=== PATIENT | male | born 1940 | race Caucasian/White ===

== ENCOUNTER 2016-06-29 13:21 | Inpatient (IN) | payer MEDICARE, OTHER ==
[2016-06-29 15:20] LABS: ABG CO2 ARTERIAL 20 mmol/L (21-27); ARTERIAL BLD GAS O2 SATURATION 93 % (95-98); ARTERIAL BLOOD GAS PCO2 30 mmHg (32-45); ARTERIAL PO2 65 mmHg (70-100); BICARBONATE 19 mmol/L (21-28); BLOOD GAS BASE EXCESS -4 mM/L (-/+3); PH 7.42 Units (7.35-7.45)
[2016-06-29 15:44] LABS: INR 1.2 INR (0.9-1.1); PROTHROMBIN TIME 13.5 SECONDS (9.0-13.6)
[2016-06-29 17:04] LABS: PROCALCITONIN 5.58 ng/ml (0.05-0.09)
[2016-06-29 18:59] LABS: ALB/GLOB RATIO 0.7 (0.8-2.0); ALBUMIN 2.9 g/dl (3.5-5.0); ALKALINE PHOSPHATASE 50 U/L (33-138); ALT/SGPT 28 U/L (12-78); ANION GAP 14 mmol/L (0-20); AST/SGOT 46 U/L (10-40); BILIRUBIN,TOTAL 1.4 mg/dl (0.0-1.5); BLOOD UREA NITROGEN 16 mg/dl (6-24); CALCIUM 8.5 mg/dl (8.5-10.5); CARBON DIOXIDE-VENOUS 21 mmol/L (22-32); CHLORIDE 109 mmol/l (96-110); CREATININE 1.44 mg/dl (0.60-1.30); GLUCOSE 231 mg/dL (70-110); MAGNESIUM 1.7 mg/dl (1.3-2.6); PHOSPHOROUS 2.4 mg/dl (2.5-4.9); POTASSIUM 4.8 mmol/L (3.7-5.1); SODIUM 139 mmol/L (135-145); eGFR VALUE FOR BLACK 55 mL/Min
[2016-06-29] MEDS ORDERED: ASPIRIN81 M1 PO (19:00)
[2016-06-29] MEDS ORDERED: LASIX20 M1 PO (19:00)
[2016-06-29] MEDS ORDERED: MECLIZINE HCL25 M3 PO (19:01)
[2016-06-29] MEDS ORDERED: PLAVIX75 M1 PO (19:02)
[2016-06-29 19:03] LABS: TSH-THYROID STIMULATING HORM. 0.54 uIU/ml (0.40-3.80)
[2016-06-29] MEDS ORDERED: GLUCOPHAGE1000 M1 PO (19:03)
[2016-06-29] MEDS ORDERED: PRINIVIL5 M1 PO (19:03)
[2016-06-29] MEDS ORDERED: PRILOSEC OTC20 M1 PO (19:03)
[2016-06-29] MEDS ORDERED: NEURONTIN600 M1 PO (19:04)
[2016-06-29] MEDS ORDERED: FLOMAX0.4 M1 PO (19:07)
[2016-06-29] MEDS ORDERED: LIPITOR40 M1 PO (19:08)
[2016-06-29] MEDS ORDERED: NOVOLIN 70100 UNITS/ SC (19:15)
[2016-06-29 23:32] LABS: URINE APPEARANCE CLEAR; URINE BILIRUBIN NEGATIVE (NEG); URINE BLOOD MODERATE (NEG); URINE COLOR YELLOW; URINE GLUCOSE (UA) LARGE (NEG); URINE KETONE NEGATIVE (NEG); URINE LEUKOCYTE ESTERASE NEGATIVE (NEG); URINE NITRITE NEGATIVE (NEG); URINE PROTEIN MODERATE (NEG); URINE SPECIFIC GRAVITY 1.015 (1.003-1.030)
[2016-06-29 23:48] LABS: URINE AMORPHOUS 1+; URINE EPITHELIAL CELLS 0 /[HPF] (0-10); URINE RBC 0 /[HPF] (0-5); URINE WBC 0-1 /[HPF] (0-5)
[2016-06-30 05:45] LABS: ABG CO2 ARTERIAL 17 mmol/L (21-27); ARTERIAL BLD GAS O2 SATURATION 97 % (95-98); ARTERIAL BLOOD GAS PCO2 33 mmHg (32-45); ARTERIAL PO2 108 mmHg (70-100); BICARBONATE 16 mmol/L (21-28); BLOOD GAS BASE EXCESS -9 mM/L (-/+3); PH 7.31 Units (7.35-7.45)
[2016-06-30 05:52] LABS: BASO % 0.1 % (0-2); HCT-HEMATOCRIT 40.1 % (36.0-53.5); HGB-HEMOGLOBIN 13.5 gm/dl (13.5-17.0); IMMATURE GRANULOCYTES ABSOLUTE 0.09 tho/cmm (0-0.03); IMMATURE GRANULOCYTES PERCENT 0.5 % (0-0.3); LYMPH % 12.8 % (20-45); LYMPH ABSOLUTE COUNT 2.2 tho/cmm (0.8-4.5); MCH (MEAN CORPUSCULAR HGB) 34.2 pg (28.0-32.0); MCHC MEAN CORPUSCULAR HGB CONC 33.7 % (32.0-36.0); MCV (MEAN CELL VOLUME) 101.5 fl (82.0-96.0); MEAN PLATELET VOLUME 10.6 cmc (9.4-12.4); MONO % 3.3 % (0-12); MONOCYTE ABSOLUTE COUNT 0.6 tho/cmm (0.0-1.2); NEUTROPHIL ABSOLUTE COUNT 14.2 tho/cmm (1.6-8.0); NEUTROPHIL-AUTOMATED 14.2 tho/cmm (1.6-8.0); NEUTROPHILS % 83.3 % (40-80); PLATELET COUNT 171 tho/cmm (150-450); RED BLOOD COUNT 3.95 mil/cmm (4.40-5.70); RED CELL DISTRIBUTION WIDTH 13.2 % (12.4-16.4); WHITE BLOOD COUNT 17.1 tho/cmm (4.0-10.0)
--- NOTE | 2016-06-30 06:03 | NUR ---
0515: SCREAMED FOR HELP. WENT IN, PATIENT NOT REALLY BREATHING WITH BIPAP ON. RIPPED OFF, GRABBED A BAG, YELLED FOR HELP, AND CALLED A CODE. PT WENT APNIC BUT MAINTAINED A PULSE THE ENTIRE TIME. WAS SEIZING. [place]'D DOWN TO THE 30'S. ONCE SEIZURE STOPPED, AND HE CAME TO, HR WENT UP TO 140S, AFIB/ST. DR. WAY AT BEDSIDE. BLOOD SUGAR 217. DC'D ALL INSULIN. GAVE 40MG LASIX. PUT HHF BACK ON. WASN'T ENOUGH SUPPORT FOR HIM, SO COMBINED HIS HOME CPAP MASK WITH THE BIPAP MACHINE. ABG'S DONE. CXR DONE. HR RETURNED TO 80S. BP WAS HIGH 180'S POST-ICTAL BUT HAS RETURNED TO 130S. LAC 6.1 POST-ICTAL. BNP AND PROLACTIN LEVEL ADDED TO AM LABS. ECHO ORDERED FOR THIS AM.
[2016-06-30 06:40] LABS: ALBUMIN 2.8 g/dl (3.5-5.0); ANION GAP 20 mmol/L (0-20); BLOOD UREA NITROGEN 21 mg/dl (6-24); CALCIUM 8.8 mg/dl (8.5-10.5); CARBON DIOXIDE-VENOUS 17 mmol/L (22-32); CHLORIDE 106 mmol/l (96-110); GLUCOSE 277 mg/dL (70-110); SODIUM 139 mmol/L (135-145)
[2016-06-30 06:43] LABS: PROLACTIN 13 ng/ml (2.5-17.4)
[2016-06-30 06:45] LABS: ALB/GLOB RATIO 0.6 (0.8-2.0); ALKALINE PHOSPHATASE 56 U/L (33-138); ALT/SGPT 24 U/L (12-78); AST/SGOT 46 U/L (10-40); BILIRUBIN,TOTAL 1.1 mg/dl (0.0-1.5); CREATININE 1.72 mg/dl (0.60-1.30); eGFR VALUE FOR BLACK 44 mL/Min
[2016-06-30 06:55] LABS: POTASSIUM 3.8 mmol/L (3.7-5.1)
[2016-06-30 07:35] LABS: PROCALCITONIN 4.88 ng/ml (0.05-0.09)
[2016-07-01 14:33] LABS: ANION GAP 14 mmol/L (0-20); BLOOD UREA NITROGEN 33 mg/dl (6-24); CALCIUM 8.4 mg/dl (8.5-10.5); CARBON DIOXIDE-VENOUS 23 mmol/L (22-32); CHLORIDE 105 mmol/l (96-110); CREATININE 1.37 mg/dl (0.60-1.30); GLUCOSE 311 mg/dL (70-110); SODIUM 138 mmol/L (135-145); eGFR VALUE FOR BLACK 58 mL/Min
[2016-07-01 23:17] LABS: ANION GAP 14 mmol/L (0-20); BLOOD UREA NITROGEN 32 mg/dl (6-24); CALCIUM 8.2 mg/dl (8.5-10.5); CARBON DIOXIDE-VENOUS 22 mmol/L (22-32); CHLORIDE 105 mmol/l (96-110); CREATININE 1.38 mg/dl (0.60-1.30); GLUCOSE 296 mg/dL (70-110); MAGNESIUM 2.3 mg/dl (1.3-2.6); PHOSPHOROUS 3.4 mg/dl (2.5-4.9); PROLACTIN 12 ng/ml (2.5-17.4); SODIUM 137 mmol/L (135-145); eGFR VALUE FOR BLACK 58 mL/Min
[2016-07-01 23:18] LABS: ABG CO2 ARTERIAL 22 mmol/L (21-27); ARTERIAL BLD GAS O2 SATURATION 96 % (95-98); ARTERIAL BLOOD GAS PCO2 35 mmHg (32-45); ARTERIAL PO2 83 mmHg (70-100); BICARBONATE 21 mmol/L (21-28); BLOOD GAS BASE EXCESS -3 mM/L (-/+3)
[2016-07-02 04:58] LABS: PROCALCITONIN 1.81 ng/ml (0.05-0.09)
[2016-07-02 07:05] LABS: BASO % 0.1 % (0-2); EOS % 0.1 % (0-7); HCT-HEMATOCRIT 35.6 % (36.0-53.5); IMMATURE GRANULOCYTES ABSOLUTE 0.14 tho/cmm (0-0.03); IMMATURE GRANULOCYTES PERCENT 1.6 % (0-0.3); LYMPH % 4.4 % (20-45); LYMPH ABSOLUTE COUNT 0.4 tho/cmm (0.8-4.5); MCH (MEAN CORPUSCULAR HGB) 33.4 pg (28.0-32.0); MCHC MEAN CORPUSCULAR HGB CONC 33.7 % (32.0-36.0); MCV (MEAN CELL VOLUME) 99.2 fl (82.0-96.0); MEAN PLATELET VOLUME 10.8 cmc (9.4-12.4); MONO % 4.4 % (0-12); MONOCYTE ABSOLUTE COUNT 0.4 tho/cmm (0.0-1.2); NEUTROPHIL ABSOLUTE COUNT 7.6 tho/cmm (1.6-8.0); NEUTROPHIL-AUTOMATED 7.6 tho/cmm (1.6-8.0); NEUTROPHILS % 89.4 % (40-80); PLATELET COUNT 133 tho/cmm (150-450); RED BLOOD COUNT 3.59 mil/cmm (4.40-5.70); RED CELL DISTRIBUTION WIDTH 13.1 % (12.4-16.4)
[2016-07-02 07:12] LABS: ALB/GLOB RATIO 0.6 (0.8-2.0); ALBUMIN 2.6 g/dl (3.5-5.0); ALKALINE PHOSPHATASE 65 U/L (33-138); ALT/SGPT 49 U/L (12-78); ANION GAP 14 mmol/L (0-20); AST/SGOT 58 U/L (10-40); BLOOD UREA NITROGEN 33 mg/dl (6-24); CALCIUM 8.4 mg/dl (8.5-10.5); CARBON DIOXIDE-VENOUS 23 mmol/L (22-32); CHLORIDE 105 mmol/l (96-110); CREATININE 1.26 mg/dl (0.60-1.30); GLUCOSE 273 mg/dL (70-110); POTASSIUM 4.3 mmol/L (3.7-5.1); SODIUM 138 mmol/L (135-145); eGFR VALUE FOR BLACK 65 mL/Min
[2016-07-02 07:21] LABS: WHITE BLOOD COUNT 8.5 tho/cmm (4.0-10.0)
[2016-07-02 15:08] LABS: ARTERIAL BLD GAS O2 SATURATION 99 % (95-98); BLOOD GAS BASE EXCESS 0 mM/L (-/+3); PH 7.31 Units (7.35-7.45)
[2016-07-02 15:09] LABS: ABG CO2 ARTERIAL 28 mmol/L (21-27); ARTERIAL BLOOD GAS PCO2 53 mmHg (32-45); ARTERIAL PO2 181 mmHg (70-100); BICARBONATE 26 mmol/L (21-28)
[2016-07-02 17:25] LABS: ABG CO2 ARTERIAL 24 mmol/L (21-27); ARTERIAL BLD GAS O2 SATURATION 99 % (95-98); BICARBONATE 23 mmol/L (21-28); BLOOD GAS BASE EXCESS -1 mM/L (-/+3)
[2016-07-02 17:27] LABS: ARTERIAL BLOOD GAS PCO2 38 mmHg (32-45); ARTERIAL PO2 141 mmHg (70-100)
[2016-07-03 04:11] LABS: ANION GAP 12 mmol/L (0-20); BLOOD UREA NITROGEN 40 mg/dl (6-24); CALCIUM 7.7 mg/dl (8.5-10.5); CARBON DIOXIDE-VENOUS 26 mmol/L (22-32); CHLORIDE 105 mmol/l (96-110); GLUCOSE 359 mg/dL (70-110); POTASSIUM 4.4 mmol/L (3.7-5.1); SODIUM 139 mmol/L (135-145); eGFR VALUE FOR BLACK 57 mL/Min
[2016-07-03 05:17] LABS: ABG CO2 ARTERIAL 24 mmol/L (21-27); ARTERIAL BLD GAS O2 SATURATION 98 % (95-98); ARTERIAL BLOOD GAS PCO2 36 mmHg (32-45); BICARBONATE 23 mmol/L (21-28); BLOOD GAS BASE EXCESS -1 mM/L (-/+3); PH 7.42 Units (7.35-7.45)
[2016-07-03 05:19] LABS: ARTERIAL PO2 100 mmHg (70-100)
[2016-07-03 05:57] LABS: PROCALCITONIN 1.04 ng/ml (0.05-0.09)
[2016-07-03 09:17] LABS: ABG CO2 ARTERIAL 25 mmol/L (21-27); ARTERIAL BLD GAS O2 SATURATION 96 % (95-98); ARTERIAL BLOOD GAS PCO2 38 mmHg (32-45); ARTERIAL PO2 87 mmHg (70-100); BICARBONATE 23 mmol/L (21-28); BLOOD GAS BASE EXCESS -1 mM/L (-/+3)
[2016-07-03 09:21] LABS: BASO % 0.2 % (0-2); HCT-HEMATOCRIT 31.3 % (36.0-53.5); HGB-HEMOGLOBIN 10.6 gm/dl (13.5-17.0); IMMATURE GRANULOCYTES ABSOLUTE 0.15 tho/cmm (0-0.03); IMMATURE GRANULOCYTES PERCENT 2.6 % (0-0.3); LYMPH % 7.7 % (20-45); LYMPH ABSOLUTE COUNT 0.5 tho/cmm (0.8-4.5); MCH (MEAN CORPUSCULAR HGB) 34.3 pg (28.0-32.0); MCHC MEAN CORPUSCULAR HGB CONC 33.9 % (32.0-36.0); MCV (MEAN CELL VOLUME) 101.3 fl (82.0-96.0); MEAN PLATELET VOLUME 10.8 cmc (9.4-12.4); MONO % 2.9 % (0-12); MONOCYTE ABSOLUTE COUNT 0.2 tho/cmm (0.0-1.2); NEUTROPHIL ABSOLUTE COUNT 5.1 tho/cmm (1.6-8.0); NEUTROPHIL-AUTOMATED 5.1 tho/cmm (1.6-8.0); NEUTROPHILS % 86.6 % (40-80); PLATELET COUNT 109 tho/cmm (150-450); RED BLOOD COUNT 3.09 mil/cmm (4.40-5.70); RED CELL DISTRIBUTION WIDTH 13.4 % (12.4-16.4); WHITE BLOOD COUNT 5.9 tho/cmm (4.0-10.0)
[2016-07-03 12:31] LABS: BAL APPEARANCE CLOUDY (CLEAR); BAL COLOR PINK (COLORLESS)
[2016-07-03 12:53] LABS: BAL EOSINOPHILS 0 %; BAL LYMPHOCYTES 4 %; BAL NEUTROPHILS 95 %
[2016-07-04 04:04] LABS: BASO % 0.3 % (0-2); HCT-HEMATOCRIT 34.3 % (36.0-53.5); HGB-HEMOGLOBIN 11.3 gm/dl (13.5-17.0); IMMATURE GRANULOCYTES ABSOLUTE 0.33 tho/cmm (0-0.03); IMMATURE GRANULOCYTES PERCENT 4.3 % (0-0.3); LYMPH ABSOLUTE COUNT 0.4 tho/cmm (0.8-4.5); MCH (MEAN CORPUSCULAR HGB) 33.6 pg (28.0-32.0); MCHC MEAN CORPUSCULAR HGB CONC 32.9 % (32.0-36.0); MCV (MEAN CELL VOLUME) 102.1 fl (82.0-96.0); MEAN PLATELET VOLUME 11.1 cmc (9.4-12.4); MONO % 3.2 % (0-12); MONOCYTE ABSOLUTE COUNT 0.3 tho/cmm (0.0-1.2); NEUTROPHIL ABSOLUTE COUNT 6.8 tho/cmm (1.6-8.0); NEUTROPHIL-AUTOMATED 6.8 tho/cmm (1.6-8.0); NEUTROPHILS % 87.2 % (40-80); PLATELET COUNT 134 tho/cmm (150-450); RED BLOOD COUNT 3.36 mil/cmm (4.40-5.70); RED CELL DISTRIBUTION WIDTH 13.4 % (12.4-16.4); WHITE BLOOD COUNT 7.8 tho/cmm (4.0-10.0)
[2016-07-04 04:08] LABS: ANION GAP 12 mmol/L (0-20); BLOOD UREA NITROGEN 39 mg/dl (6-24); CALCIUM 7.8 mg/dl (8.5-10.5); CARBON DIOXIDE-VENOUS 26 mmol/L (22-32); CHLORIDE 111 mmol/l (96-110); CREATININE 1.37 mg/dl (0.60-1.30); GLUCOSE 365 mg/dL (70-110); POTASSIUM 4.6 mmol/L (3.7-5.1); SODIUM 144 mmol/L (135-145); eGFR VALUE FOR BLACK 58 mL/Min
[2016-07-04 05:23] LABS: ABG CO2 ARTERIAL 25 mmol/L (21-27); ARTERIAL BLD GAS O2 SATURATION 97 % (95-98); ARTERIAL BLOOD GAS PCO2 41 mmHg (32-45); ARTERIAL PO2 94 mmHg (70-100); BICARBONATE 24 mmol/L (21-28); BLOOD GAS BASE EXCESS -1 mM/L (-/+3); PH 7.37 Units (7.35-7.45)
[2016-07-05 03:44] LABS: BASO % 0.3 % (0-2); EOS % 0.6 % (0-7); EOSINOPHIL ABSOLUTE COUNT 0.1 tho/cmm (0.0-0.7); HCT-HEMATOCRIT 36.3 % (36.0-53.5); HGB-HEMOGLOBIN 12.1 gm/dl (13.5-17.0); IMMATURE GRANULOCYTES ABSOLUTE 0.38 tho/cmm (0-0.03); LYMPH % 5.6 % (20-45); LYMPH ABSOLUTE COUNT 0.5 tho/cmm (0.8-4.5); MCH (MEAN CORPUSCULAR HGB) 34.2 pg (28.0-32.0); MCHC MEAN CORPUSCULAR HGB CONC 33.3 % (32.0-36.0); MCV (MEAN CELL VOLUME) 102.5 fl (82.0-96.0); MEAN PLATELET VOLUME 11.2 cmc (9.4-12.4); MONO % 2.8 % (0-12); MONOCYTE ABSOLUTE COUNT 0.3 tho/cmm (0.0-1.2); NEUTROPHIL ABSOLUTE COUNT 8.3 tho/cmm (1.6-8.0); NEUTROPHIL-AUTOMATED 8.3 tho/cmm (1.6-8.0); NEUTROPHILS % 86.7 % (40-80); PLATELET COUNT 139 tho/cmm (150-450); RED BLOOD COUNT 3.54 mil/cmm (4.40-5.70); RED CELL DISTRIBUTION WIDTH 13.4 % (12.4-16.4); WHITE BLOOD COUNT 9.6 tho/cmm (4.0-10.0)
[2016-07-05 03:49] LABS: ANION GAP 12 mmol/L (0-20); BLOOD UREA NITROGEN 43 mg/dl (6-24); CALCIUM 7.8 mg/dl (8.5-10.5); CARBON DIOXIDE-VENOUS 31 mmol/L (22-32); CHLORIDE 108 mmol/l (96-110); CREATININE 1.37 mg/dl (0.60-1.30); POTASSIUM 4.3 mmol/L (3.7-5.1); SODIUM 147 mmol/L (135-145); eGFR VALUE FOR BLACK 58 mL/Min
[2016-07-05 04:03] LABS: GLUCOSE 138 mg/dL (70-110)
[2016-07-05 05:13] LABS: ABG CO2 ARTERIAL 24 mmol/L (21-27); ARTERIAL BLD GAS O2 SATURATION 99 % (95-98); ARTERIAL BLOOD GAS PCO2 45 mmHg (32-45); ARTERIAL PO2 117 mmHg (70-100); BICARBONATE 28 mmol/L (21-28); BLOOD GAS BASE EXCESS 3 mM/L (-/+3); PH 7.41 Units (7.35-7.45)
[2016-07-06 04:42] LABS: ANION GAP 13 mmol/L (0-20); BLOOD UREA NITROGEN 48 mg/dl (6-24); CALCIUM 8.1 mg/dl (8.5-10.5); CARBON DIOXIDE-VENOUS 30 mmol/L (22-32); CHLORIDE 103 mmol/l (96-110); CREATININE 1.33 mg/dl (0.60-1.30); GLUCOSE 197 mg/dL (70-110); SODIUM 142 mmol/L (135-145); eGFR VALUE FOR BLACK 61 mL/Min
[2016-07-06 05:33] LABS: ABG CO2 ARTERIAL 29 mmol/L (21-27); ARTERIAL BLD GAS O2 SATURATION 95 % (95-98); ARTERIAL BLOOD GAS PCO2 38 mmHg (32-45); ARTERIAL PO2 71 mmHg (70-100); BICARBONATE 28 mmol/L (21-28); BLOOD GAS BASE EXCESS 5 mM/L (-/+3); PH 7.48 Units (7.35-7.45)
[2016-07-07 03:28] LABS: BASO % 0.3 % (0-2); EOS % 1.3 % (0-7); EOSINOPHIL ABSOLUTE COUNT 0.2 tho/cmm (0.0-0.7); HCT-HEMATOCRIT 39.6 % (36.0-53.5); HGB-HEMOGLOBIN 13.2 gm/dl (13.5-17.0); IMMATURE GRANULOCYTES PERCENT 1.6 % (0-0.3); LYMPH ABSOLUTE COUNT 0.6 tho/cmm (0.8-4.5); MCH (MEAN CORPUSCULAR HGB) 33.6 pg (28.0-32.0); MCHC MEAN CORPUSCULAR HGB CONC 33.3 % (32.0-36.0); MCV (MEAN CELL VOLUME) 100.8 fl (82.0-96.0); MEAN PLATELET VOLUME 11.7 cmc (9.4-12.4); MONO % 1.9 % (0-12); MONOCYTE ABSOLUTE COUNT 0.2 tho/cmm (0.0-1.2); NEUTROPHIL ABSOLUTE COUNT 10.9 tho/cmm (1.6-8.0); NEUTROPHIL-AUTOMATED 10.9 tho/cmm (1.6-8.0); NEUTROPHILS % 89.9 % (40-80); PLATELET COUNT 116 tho/cmm (150-450); RED BLOOD COUNT 3.93 mil/cmm (4.40-5.70); RED CELL DISTRIBUTION WIDTH 13.1 % (12.4-16.4); WHITE BLOOD COUNT 12.2 tho/cmm (4.0-10.0)
[2016-07-07 03:32] LABS: ANION GAP 12 mmol/L (0-20); BLOOD UREA NITROGEN 56 mg/dl (6-24); CALCIUM 8.1 mg/dl (8.5-10.5); CARBON DIOXIDE-VENOUS 30 mmol/L (22-32); CHLORIDE 103 mmol/l (96-110); CREATININE 1.37 mg/dl (0.60-1.30); GLUCOSE 157 mg/dL (70-110); POTASSIUM 4.1 mmol/L (3.7-5.1); SODIUM 141 mmol/L (135-145); eGFR VALUE FOR BLACK 58 mL/Min
[2016-07-07 05:15] LABS: ABG CO2 ARTERIAL 30 mmol/L (21-27); ARTERIAL BLD GAS O2 SATURATION 91 % (95-98); ARTERIAL BLOOD GAS PCO2 38 mmHg (32-45); BICARBONATE 29 mmol/L (21-28); BLOOD GAS BASE EXCESS 5 mM/L (-/+3); PH 7.49 Units (7.35-7.45)
[2016-07-07 05:17] LABS: ARTERIAL PO2 60 mmHg (70-100)
[2016-07-07 16:09] LABS: BAL LYMPHOCYTES 8 %; BAL NEUTROPHILS 55 %
[2016-07-07 16:10] LABS: BAL APPEARANCE HAZY (CLEAR); BAL COLOR COLORLESS (COLORLESS); BAL EOSINOPHILS 0 %
[2016-07-08 04:09] LABS: ANION GAP 11 mmol/L (0-20); BLOOD UREA NITROGEN 62 mg/dl (6-24); CALCIUM 8.1 mg/dl (8.5-10.5); CARBON DIOXIDE-VENOUS 30 mmol/L (22-32); CHLORIDE 103 mmol/l (96-110); CREATININE 1.53 mg/dl (0.60-1.30); GLUCOSE 126 mg/dL (70-110); POTASSIUM 3.9 mmol/L (3.7-5.1); SODIUM 140 mmol/L (135-145); eGFR VALUE FOR BLACK 51 mL/Min
[2016-07-08 04:16] LABS: BASO % 0.1 % (0-2); EOS % 0.8 % (0-7); EOSINOPHIL ABSOLUTE COUNT 0.1 tho/cmm (0.0-0.7); HCT-HEMATOCRIT 38.4 % (36.0-53.5); HGB-HEMOGLOBIN 12.9 gm/dl (13.5-17.0); IMMATURE GRANULOCYTES ABSOLUTE 0.16 tho/cmm (0-0.03); IMMATURE GRANULOCYTES PERCENT 1.1 % (0-0.3); LYMPH % 3.4 % (20-45); LYMPH ABSOLUTE COUNT 0.5 tho/cmm (0.8-4.5); MCH (MEAN CORPUSCULAR HGB) 33.9 pg (28.0-32.0); MCHC MEAN CORPUSCULAR HGB CONC 33.6 % (32.0-36.0); MCV (MEAN CELL VOLUME) 100.8 fl (82.0-96.0); MEAN PLATELET VOLUME 12.5 cmc (9.4-12.4); MONO % 2.6 % (0-12); MONOCYTE ABSOLUTE COUNT 0.4 tho/cmm (0.0-1.2); NEUTROPHIL ABSOLUTE COUNT 13.1 tho/cmm (1.6-8.0); NEUTROPHIL-AUTOMATED 13.1 tho/cmm (1.6-8.0); PLATELET COUNT 89 tho/cmm (150-450); RED BLOOD COUNT 3.81 mil/cmm (4.40-5.70); RED CELL DISTRIBUTION WIDTH 13.2 % (12.4-16.4); WHITE BLOOD COUNT 14.2 tho/cmm (4.0-10.0)
[2016-07-08 05:24] LABS: ABG CO2 ARTERIAL 29 mmol/L (21-27); ARTERIAL BLD GAS O2 SATURATION 95 % (95-98); ARTERIAL BLOOD GAS PCO2 36 mmHg (32-45); BICARBONATE 27 mmol/L (21-28); BLOOD GAS BASE EXCESS 5 mM/L (-/+3); PH 7.49 Units (7.35-7.45)
[2016-07-08 05:26] LABS: ARTERIAL PO2 73 mmHg (70-100)
[2016-07-08 13:58] LABS: PF4 (HIT) ANTIBODY POSITIVE (NEGATIVE)
[2016-07-09 03:56] LABS: BASO % 0.2 % (0-2); EOS % 0.5 % (0-7); EOSINOPHIL ABSOLUTE COUNT 0.1 tho/cmm (0.0-0.7); HCT-HEMATOCRIT 38.6 % (36.0-53.5); HGB-HEMOGLOBIN 12.8 gm/dl (13.5-17.0); IMMATURE GRANULOCYTES ABSOLUTE 0.12 tho/cmm (0-0.03); IMMATURE GRANULOCYTES PERCENT 0.7 % (0-0.3); LYMPH % 3.2 % (20-45); LYMPH ABSOLUTE COUNT 0.5 tho/cmm (0.8-4.5); MCH (MEAN CORPUSCULAR HGB) 33.7 pg (28.0-32.0); MCHC MEAN CORPUSCULAR HGB CONC 33.2 % (32.0-36.0); MCV (MEAN CELL VOLUME) 101.6 fl (82.0-96.0); MEAN PLATELET VOLUME 13.3 cmc (9.4-12.4); MONO % 2.8 % (0-12); MONOCYTE ABSOLUTE COUNT 0.5 tho/cmm (0.0-1.2); NEUTROPHIL ABSOLUTE COUNT 15.1 tho/cmm (1.6-8.0); NEUTROPHIL-AUTOMATED 15.1 tho/cmm (1.6-8.0); NEUTROPHILS % 92.6 % (40-80); RED CELL DISTRIBUTION WIDTH 13.3 % (12.4-16.4); WHITE BLOOD COUNT 16.3 tho/cmm (4.0-10.0)
[2016-07-09 04:06] LABS: ANION GAP 13 mmol/L (0-20); BLOOD UREA NITROGEN 64 mg/dl (6-24); CALCIUM 8.1 mg/dl (8.5-10.5); CARBON DIOXIDE-VENOUS 27 mmol/L (22-32); CHLORIDE 102 mmol/l (96-110); CREATININE 1.65 mg/dl (0.60-1.30); POTASSIUM 4.2 mmol/L (3.7-5.1); SODIUM 138 mmol/L (135-145); eGFR VALUE FOR BLACK 47 mL/Min
[2016-07-09 04:20] LABS: PLATELET COUNT 36 tho/cmm (150-450)
[2016-07-09 04:48] LABS: GLUCOSE 313 mg/dL (70-110)
[2016-07-09 04:59] LABS: ABG CO2 ARTERIAL 27 mmol/L (21-27); ARTERIAL BLD GAS O2 SATURATION 92 % (95-98); ARTERIAL BLOOD GAS PCO2 38 mmHg (32-45); ARTERIAL PO2 66 mmHg (70-100); BICARBONATE 26 mmol/L (21-28); BLOOD GAS BASE EXCESS 3 mM/L (-/+3); PH 7.46 Units (7.35-7.45)
[2016-07-09 11:27] LABS: URINE APPEARANCE CLEAR; URINE BILIRUBIN NEGATIVE (NEG); URINE BLOOD LARGE (NEG); URINE COLOR YELLOW; URINE GLUCOSE (UA) NEGATIVE (NEG); URINE KETONE NEGATIVE (NEG); URINE LEUKOCYTE ESTERASE NEGATIVE (NEG); URINE NITRITE NEGATIVE (NEG); URINE PH 6.5 (5.0-8.0); URINE PROTEIN MODERATE (NEG)
[2016-07-09 11:40] LABS: URINE EPITHELIAL CELLS 0 /[HPF] (0-10); URINE MUCUS 3+; URINE RBC RARE /[HPF] (0-5); URINE WBC RARE /[HPF] (0-5)
[2016-07-09 12:33] LABS: ALB/GLOB RATIO 0.5 (0.8-2.0); ALBUMIN 2.5 g/dl (3.5-5.0); BILIRUBIN,DIRECT 0.3 mg/dl (0.0-0.3); BILIRUBIN,INDIRECT 0.4 mg/dL (0.0-1.0); BILIRUBIN,TOTAL 0.7 mg/dl (0.0-1.5)
[2016-07-09 14:45] LABS: CKMB 1.6 ng/ml (<3.6)
[2016-07-09 14:46] LABS: CREATINE PHOSPHOKINASE (CPK) 112 U/L (35-232)
[2016-07-09 19:18] LABS: PARTIAL THROMBOPLASTIN TIME 54 SECONDS (22-38)
[2016-07-10 04:33] LABS: ABG CO2 ARTERIAL 27 mmol/L (21-27); ARTERIAL BLD GAS O2 SATURATION 90 % (95-98); ARTERIAL BLOOD GAS PCO2 41 mmHg (32-45); ARTERIAL PO2 61 mmHg (70-100); BICARBONATE 26 mmol/L (21-28); BLOOD GAS BASE EXCESS 2 mM/L (-/+3); PH 7.42 Units (7.35-7.45)
[2016-07-10 05:24] LABS: BASO % 0.1 % (0-2); HCT-HEMATOCRIT 37.5 % (36.0-53.5); HGB-HEMOGLOBIN 12.3 gm/dl (13.5-17.0); IMMATURE GRANULOCYTES ABSOLUTE 0.12 tho/cmm (0-0.03); IMMATURE GRANULOCYTES PERCENT 0.8 % (0-0.3); LYMPH % 7.8 % (20-45); LYMPH ABSOLUTE COUNT 1.1 tho/cmm (0.8-4.5); MCH (MEAN CORPUSCULAR HGB) 33.9 pg (28.0-32.0); MCHC MEAN CORPUSCULAR HGB CONC 32.8 % (32.0-36.0); MCV (MEAN CELL VOLUME) 103.3 fl (82.0-96.0); MEAN PLATELET VOLUME 13.5 cmc (9.4-12.4); MONO % 4.1 % (0-12); MONOCYTE ABSOLUTE COUNT 0.6 tho/cmm (0.0-1.2); NEUTROPHIL ABSOLUTE COUNT 12.5 tho/cmm (1.6-8.0); NEUTROPHIL-AUTOMATED 12.5 tho/cmm (1.6-8.0); NEUTROPHILS % 87.2 % (40-80); RED BLOOD COUNT 3.63 mil/cmm (4.40-5.70); RED CELL DISTRIBUTION WIDTH 13.5 % (12.4-16.4); WHITE BLOOD COUNT 14.3 tho/cmm (4.0-10.0)
[2016-07-10 05:26] LABS: PLATELET COUNT 79 tho/cmm (150-450)
[2016-07-10 05:33] LABS: ALB/GLOB RATIO 0.5 (0.8-2.0); ALBUMIN 2.5 g/dl (3.5-5.0); ALKALINE PHOSPHATASE 58 U/L (33-138); ALT/SGPT 37 U/L (12-78); ANION GAP 13 mmol/L (0-20); AST/SGOT 27 U/L (10-40); BILIRUBIN,TOTAL 0.6 mg/dl (0.0-1.5); BLOOD UREA NITROGEN 58 mg/dl (6-24); CALCIUM 8.4 mg/dl (8.5-10.5); CARBON DIOXIDE-VENOUS 24 mmol/L (22-32); CHLORIDE 109 mmol/l (96-110); GLUCOSE 299 mg/dL (70-110); POTASSIUM 5.2 mmol/L (3.7-5.1); SODIUM 141 mmol/L (135-145); eGFR VALUE FOR BLACK 62 mL/Min
[2016-07-10 06:51] LABS: PF4 (HIT) ANTIBODY POSITIVE (NEGATIVE)
[2016-07-11 03:34] LABS: BASO % 0.2 % (0-2); HCT-HEMATOCRIT 37.7 % (36.0-53.5); HGB-HEMOGLOBIN 12.6 gm/dl (13.5-17.0); IMMATURE GRANULOCYTES ABSOLUTE 0.08 tho/cmm (0-0.03); IMMATURE GRANULOCYTES PERCENT 0.7 % (0-0.3); LYMPH % 12.3 % (20-45); LYMPH ABSOLUTE COUNT 1.5 tho/cmm (0.8-4.5); MCH (MEAN CORPUSCULAR HGB) 34.1 pg (28.0-32.0); MCHC MEAN CORPUSCULAR HGB CONC 33.4 % (32.0-36.0); MCV (MEAN CELL VOLUME) 102.2 fl (82.0-96.0); MEAN PLATELET VOLUME 12.3 cmc (9.4-12.4); MONO % 4.6 % (0-12); MONOCYTE ABSOLUTE COUNT 0.6 tho/cmm (0.0-1.2); NEUTROPHIL ABSOLUTE COUNT 10.1 tho/cmm (1.6-8.0); NEUTROPHIL-AUTOMATED 10.1 tho/cmm (1.6-8.0); NEUTROPHILS % 82.2 % (40-80); RED BLOOD COUNT 3.69 mil/cmm (4.40-5.70); RED CELL DISTRIBUTION WIDTH 13.3 % (12.4-16.4); WHITE BLOOD COUNT 12.3 tho/cmm (4.0-10.0)
[2016-07-11 03:35] LABS: PLATELET COUNT 120 tho/cmm (150-450)
[2016-07-11 03:47] LABS: ALB/GLOB RATIO 0.5 (0.8-2.0); ALBUMIN 2.5 g/dl (3.5-5.0); ALKALINE PHOSPHATASE 58 U/L (33-138); ALT/SGPT 35 U/L (12-78); ANION GAP 12 mmol/L (0-20); AST/SGOT 23 U/L (10-40); BILIRUBIN,TOTAL 0.5 mg/dl (0.0-1.5); BLOOD UREA NITROGEN 61 mg/dl (6-24); CALCIUM 8.6 mg/dl (8.5-10.5); CARBON DIOXIDE-VENOUS 27 mmol/L (22-32); CHLORIDE 110 mmol/l (96-110); CREATININE 1.28 mg/dl (0.60-1.30); GLUCOSE 215 mg/dL (70-110); POTASSIUM 4.8 mmol/L (3.7-5.1); SODIUM 144 mmol/L (135-145); eGFR VALUE FOR BLACK 63 mL/Min
[2016-07-12 04:07] LABS: BASO % 0.2 % (0-2); EOS % 0.1 % (0-7); HCT-HEMATOCRIT 38.4 % (36.0-53.5); HGB-HEMOGLOBIN 12.7 gm/dl (13.5-17.0); IMMATURE GRANULOCYTES ABSOLUTE 0.11 tho/cmm (0-0.03); IMMATURE GRANULOCYTES PERCENT 0.8 % (0-0.3); LYMPH ABSOLUTE COUNT 1.5 tho/cmm (0.8-4.5); MCH (MEAN CORPUSCULAR HGB) 33.6 pg (28.0-32.0); MCHC MEAN CORPUSCULAR HGB CONC 33.1 % (32.0-36.0); MCV (MEAN CELL VOLUME) 101.6 fl (82.0-96.0); MEAN PLATELET VOLUME 12.2 cmc (9.4-12.4); MONO % 5.6 % (0-12); MONOCYTE ABSOLUTE COUNT 0.7 tho/cmm (0.0-1.2); NEUTROPHILS % 82.3 % (40-80); PLATELET COUNT 178 tho/cmm (150-450); RED BLOOD COUNT 3.78 mil/cmm (4.40-5.70); RED CELL DISTRIBUTION WIDTH 13.1 % (12.4-16.4); WHITE BLOOD COUNT 13.3 tho/cmm (4.0-10.0)
[2016-07-12 04:15] LABS: ALB/GLOB RATIO 0.5 (0.8-2.0); ALBUMIN 2.5 g/dl (3.5-5.0); ALKALINE PHOSPHATASE 58 U/L (33-138); ALT/SGPT 37 U/L (12-78); ANION GAP 12 mmol/L (0-20); AST/SGOT 23 U/L (10-40); BILIRUBIN,DIRECT 0.2 mg/dl (0.0-0.3); BILIRUBIN,INDIRECT 0.4 mg/dL (0.0-1.0); BILIRUBIN,TOTAL 0.6 mg/dl (0.0-1.5); BLOOD UREA NITROGEN 58 mg/dl (6-24); CALCIUM 8.3 mg/dl (8.5-10.5); CARBON DIOXIDE-VENOUS 28 mmol/L (22-32); CHLORIDE 106 mmol/l (96-110); CREATININE 1.23 mg/dl (0.60-1.30); GLUCOSE 225 mg/dL (70-110); POTASSIUM 4.7 mmol/L (3.7-5.1); SODIUM 141 mmol/L (135-145); eGFR VALUE FOR BLACK 67 mL/Min
[2016-07-12 19:38] LABS: PF4 (HIT) ANTIBODY POSITIVE (NEGATIVE)
[2016-07-13 04:33] LABS: ANION GAP 15 mmol/L (0-20); BLOOD UREA NITROGEN 57 mg/dl (6-24); CALCIUM 8.5 mg/dl (8.5-10.5); CARBON DIOXIDE-VENOUS 25 mmol/L (22-32); CHLORIDE 100 mmol/l (96-110); CREATININE 1.34 mg/dl (0.60-1.30); GLUCOSE 334 mg/dL (70-110); POTASSIUM 5.4 mmol/L (3.7-5.1); SODIUM 135 mmol/L (135-145); eGFR VALUE FOR BLACK 60 mL/Min
[2016-07-13 04:45] LABS: INR 2.3 INR (0.9-1.1); PROTHROMBIN TIME 26.9 SECONDS (9.0-13.6)
[2016-07-13 20:05] LABS: ABG CO2 ARTERIAL 22 mmol/L (21-27); ARTERIAL BLD GAS O2 SATURATION 91 % (95-98); ARTERIAL BLOOD GAS PCO2 31 mmHg (32-45); ARTERIAL PO2 64 mmHg (70-100); BICARBONATE 21 mmol/L (21-28); BLOOD GAS BASE EXCESS -1 mM/L (-/+3); PH 7.46 Units (7.35-7.45)
[2016-07-14 04:40] LABS: BASO % 0.1 % (0-2); HCT-HEMATOCRIT 40.6 % (36.0-53.5); HGB-HEMOGLOBIN 13.8 gm/dl (13.5-17.0); IMMATURE GRANULOCYTES ABSOLUTE 0.39 tho/cmm (0-0.03); IMMATURE GRANULOCYTES PERCENT 1.9 % (0-0.3); LYMPH % 7.6 % (20-45); LYMPH ABSOLUTE COUNT 1.6 tho/cmm (0.8-4.5); MCH (MEAN CORPUSCULAR HGB) 33.9 pg (28.0-32.0); MCV (MEAN CELL VOLUME) 99.8 fl (82.0-96.0); MEAN PLATELET VOLUME 12.2 cmc (9.4-12.4); MONO % 3.8 % (0-12); MONOCYTE ABSOLUTE COUNT 0.8 tho/cmm (0.0-1.2); NEUTROPHIL ABSOLUTE COUNT 18.1 tho/cmm (1.6-8.0); NEUTROPHIL-AUTOMATED 18.1 tho/cmm (1.6-8.0); NEUTROPHILS % 86.6 % (40-80); PLATELET COUNT 243 tho/cmm (150-450); RED BLOOD COUNT 4.07 mil/cmm (4.40-5.70); RED CELL DISTRIBUTION WIDTH 12.9 % (12.4-16.4)
[2016-07-14 04:48] LABS: WHITE BLOOD COUNT 20.9 tho/cmm (4.0-10.0)
[2016-07-14 06:10] LABS: INR 3.5 INR (0.9-1.1); PROTHROMBIN TIME 42.4 SECONDS (9.0-13.6)
[2016-07-14 12:37] LABS: INR 1.6 INR (0.9-1.1); PROTHROMBIN TIME 19.3 SECONDS (9.0-13.6)
[2016-07-14 12:52] LABS: ARTERIAL BLD GAS O2 SATURATION 93 % (95-98); BICARBONATE 25 mmol/L (21-28); BLOOD GAS BASE EXCESS -4 mM/L (-/+3); PH 7.21 Units (7.35-7.45)
[2016-07-14 12:55] LABS: ABG CO2 ARTERIAL 27 mmol/L (21-27); ARTERIAL BLOOD GAS PCO2 66 mmHg (32-45); ARTERIAL PO2 89 mmHg (70-100)
[2016-07-15 04:28] LABS: ABG CO2 ARTERIAL 23 mmol/L (21-27); ARTERIAL BLD GAS O2 SATURATION 94 % (95-98); BICARBONATE 22 mmol/L (21-28); BLOOD GAS BASE EXCESS -1 mM/L (-/+3); PH 7.44 Units (7.35-7.45)
[2016-07-15 04:30] LABS: ARTERIAL BLOOD GAS PCO2 33 mmHg (32-45); ARTERIAL PO2 70 mmHg (70-100)
[2016-07-15 04:59] LABS: INR 1.5 INR (0.9-1.1); PROTHROMBIN TIME 18.1 SECONDS (9.0-13.6)
[2016-07-15 05:08] LABS: BASO % 0.1 % (0-2); EOS % 0.2 % (0-7); HCT-HEMATOCRIT 36.9 % (36.0-53.5); HGB-HEMOGLOBIN 12.7 gm/dl (13.5-17.0); IMMATURE GRANULOCYTES ABSOLUTE 0.25 tho/cmm (0-0.03); IMMATURE GRANULOCYTES PERCENT 1.4 % (0-0.3); LYMPH ABSOLUTE COUNT 1.1 tho/cmm (0.8-4.5); MCH (MEAN CORPUSCULAR HGB) 33.5 pg (28.0-32.0); MCHC MEAN CORPUSCULAR HGB CONC 34.4 % (32.0-36.0); MCV (MEAN CELL VOLUME) 97.4 fl (82.0-96.0); MONO % 3.4 % (0-12); MONOCYTE ABSOLUTE COUNT 0.6 tho/cmm (0.0-1.2); NEUTROPHIL ABSOLUTE COUNT 16.4 tho/cmm (1.6-8.0); NEUTROPHIL-AUTOMATED 16.4 tho/cmm (1.6-8.0); NEUTROPHILS % 88.9 % (40-80); PLATELET COUNT 172 tho/cmm (150-450); RED BLOOD COUNT 3.79 mil/cmm (4.40-5.70); RED CELL DISTRIBUTION WIDTH 12.9 % (12.4-16.4); WHITE BLOOD COUNT 18.5 tho/cmm (4.0-10.0)
[2016-07-15 05:25] LABS: ALB/GLOB RATIO 0.5 (0.8-2.0); ALBUMIN 2.5 g/dl (3.5-5.0); ALKALINE PHOSPHATASE 72 U/L (33-138); ALT/SGPT 35 U/L (12-78); ANION GAP 14 mmol/L (0-20); AST/SGOT 22 U/L (10-40); BILIRUBIN,TOTAL 0.5 mg/dl (0.0-1.5); BLOOD UREA NITROGEN 80 mg/dl (6-24); CALCIUM 8.2 mg/dl (8.5-10.5); CARBON DIOXIDE-VENOUS 25 mmol/L (22-32); CHLORIDE 101 mmol/l (96-110); CREATININE 1.81 mg/dl (0.60-1.30); GLUCOSE 265 mg/dL (70-110); POTASSIUM 5.7 mmol/L (3.7-5.1); SODIUM 134 mmol/L (135-145); eGFR VALUE FOR BLACK 42 mL/Min
[2016-07-15 05:32] LABS: BILIRUBIN,DIRECT 0.2 mg/dl (0.0-0.3); BILIRUBIN,INDIRECT 0.3 mg/dL (0.0-1.0)
--- NOTE | 2016-07-15 08:25 | NUR ---
[facility] NOTIFIED @ 0808 FOR MANAGEMENT OF INR 1.5, TO BE LESS THAN 1.2 FOR EGD/PEG PLACEMENT @ 1000.
[2016-07-15 09:35] LABS: INR 1.5 INR (0.9-1.1); PROTHROMBIN TIME 17.1 SECONDS (9.0-13.6)
[2016-07-15 11:34] LABS: INR 1.4 INR (0.9-1.1); PROTHROMBIN TIME 16.2 SECONDS (9.0-13.6)
[2016-07-15 14:18] LABS: INR 1.3 INR (0.9-1.1); PROTHROMBIN TIME 15.5 SECONDS (9.0-13.6)
[2016-07-15 19:39] LABS: URINE CREATININE-RANDOM 93 mg/dl (30-125); URINE SODIUM-RANDOM 36 mmol/L (20-110)
[2016-07-16 04:20] LABS: BASO % 0.1 % (0-2); HCT-HEMATOCRIT 28.9 % (36.0-53.5); HGB-HEMOGLOBIN 9.9 gm/dl (13.5-17.0); IMMATURE GRANULOCYTES ABSOLUTE 0.05 tho/cmm (0-0.03); IMMATURE GRANULOCYTES PERCENT 0.5 % (0-0.3); LYMPH % 4.2 % (20-45); LYMPH ABSOLUTE COUNT 0.5 tho/cmm (0.8-4.5); MCHC MEAN CORPUSCULAR HGB CONC 34.3 % (32.0-36.0); MCV (MEAN CELL VOLUME) 99.3 fl (82.0-96.0); MEAN PLATELET VOLUME 11.7 cmc (9.4-12.4); MONO % 1.8 % (0-12); MONOCYTE ABSOLUTE COUNT 0.2 tho/cmm (0.0-1.2); NEUTROPHIL ABSOLUTE COUNT 10.1 tho/cmm (1.6-8.0); NEUTROPHIL-AUTOMATED 10.1 tho/cmm (1.6-8.0); NEUTROPHILS % 93.4 % (40-80); PLATELET COUNT 111 tho/cmm (150-450); RED BLOOD COUNT 2.91 mil/cmm (4.40-5.70); RED CELL DISTRIBUTION WIDTH 13.4 % (12.4-16.4); WHITE BLOOD COUNT 10.9 tho/cmm (4.0-10.0)
[2016-07-16 04:35] LABS: INR 1.3 INR (0.9-1.1); PROTHROMBIN TIME 15.2 SECONDS (9.0-13.6)
[2016-07-16 04:46] LABS: ALB/GLOB RATIO 0.5 (0.8-2.0); ALBUMIN 2.2 g/dl (3.5-5.0); ALKALINE PHOSPHATASE 62 U/L (33-138); ALT/SGPT 29 U/L (12-78); ANION GAP 12 mmol/L (0-20); AST/SGOT 26 U/L (10-40); BILIRUBIN,TOTAL 0.8 mg/dl (0.0-1.5); BLOOD UREA NITROGEN 65 mg/dl (6-24); C-REACTIVE PROTEIN 10.4 mg/dl (0-0.9); CALCIUM 7.5 mg/dl (8.5-10.5); CARBON DIOXIDE-VENOUS 23 mmol/L (22-32); CHLORIDE 105 mmol/l (96-110); CREATININE 1.59 mg/dl (0.60-1.30); GLUCOSE 292 mg/dL (70-110); POTASSIUM 5.4 mmol/L (3.7-5.1); SODIUM 135 mmol/L (135-145); eGFR VALUE FOR BLACK 49 mL/Min
[2016-07-16 18:08] LABS: ABG CO2 ARTERIAL 21 mmol/L (21-27); ARTERIAL BLD GAS O2 SATURATION 96 % (95-98); ARTERIAL BLOOD GAS PCO2 40 mmHg (32-45); ARTERIAL PO2 87 mmHg (70-100); BICARBONATE 20 mmol/L (21-28); BLOOD GAS BASE EXCESS -5 mM/L (-/+3); PH 7.33 Units (7.35-7.45)
[2016-07-16 20:44] LABS: URINE BILIRUBIN NEGATIVE (NEG); URINE BLOOD LARGE (NEG); URINE GLUCOSE (UA) NEGATIVE (NEG); URINE KETONE NEGATIVE (NEG); URINE LEUKOCYTE ESTERASE NEGATIVE (NEG); URINE NITRITE NEGATIVE (NEG); URINE PROTEIN SMALL (NEG)
[2016-07-16 20:45] LABS: URINE APPEARANCE HAZY; URINE COLOR YELLOW
[2016-07-16 20:56] LABS: URINE RBC 100-150 /[HPF] (0-5)
[2016-07-16 20:57] LABS: URINE EPITHELIAL CELLS 0-1 /[HPF] (0-10)
[2016-07-16 21:05] LABS: ABG CO2 ARTERIAL 22 mmol/L (21-27); ARTERIAL BLOOD GAS PCO2 45 mmHg (32-45); BICARBONATE 20 mmol/L (21-28); BLOOD GAS BASE EXCESS -6 mM/L (-/+3); PH 7.28 Units (7.35-7.45)
[2016-07-16 21:06] LABS: ARTERIAL BLD GAS O2 SATURATION 80 % (95-98); ARTERIAL PO2 50 mmHg (70-100)
== END 2016-07-16 22:33 | disposition expired | DRG 4 ==
LOC: CCU 13:21
PROVIDERS: Internal Medicine; Internal Medicine Critical Care Medicine; Internal Medicine Gastroenterology; Internal Medicine Hematology & Oncology; Internal Medicine Medical Oncology; Internal Medicine Pulmonary Disease; Nurse Practitioner Family; Psychiatry & Neurology Neurology; Registered Nurse; ADMIT Family Medicine
PROC: 5A1955Z Respiratory Ventilation, Greater than 96 Consecutive Hours (ICD-10-PCS; principal; 2016-07-02)
PROC: 02HV33Z Insertion of Infusion Device into Superior Vena Cava, Percutaneous Approach (ICD-10-PCS; 2016-07-02)
PROC: 0BH18EZ Insertion of Endotracheal Airway into Trachea, Via Natural or Artificial Opening Endoscopic (ICD-10-PCS; 2016-07-02)
PROC: 0B938ZX Drainage of Right Main Bronchus, Via Natural or Artificial Opening Endoscopic, Diagnostic (ICD-10-PCS; 2016-07-04)
PROC: 0B938ZX Drainage of Right Main Bronchus, Via Natural or Artificial Opening Endoscopic, Diagnostic (ICD-10-PCS; 2016-07-07)
PROC: 0B110F4 Bypass Trachea to Cutaneous with Tracheostomy Device, Open Approach (ICD-10-PCS; 2016-07-15)
PROC: 0DH63UZ Insertion of Feeding Device into Stomach, Percutaneous Approach (ICD-10-PCS; 2016-07-15)
PROC: 0BJ08ZZ Inspection of Tracheobronchial Tree, Via Natural or Artificial Opening Endoscopic (ICD-10-PCS; 2016-07-15)
DX: A41.9 Sepsis, unspecified organism (principal); J69.0 Pneumonitis due to inhalation of food and vomit; B25.0 Cytomegaloviral pneumonitis; N17.9 Acute kidney failure, unspecified; G93.40 Encephalopathy, unspecified; E87.0 Hyperosmolality and hypernatremia; E11.22 Type 2 diabetes mellitus with diabetic chronic kidney disease; D75.82 Heparin induced thrombocytopenia (HIT); J96.01 Acute respiratory failure with hypoxia; Z51.5 Encounter for palliative care; R65.20 Severe sepsis without septic shock; E11.65 Type 2 diabetes mellitus with hyperglycemia; I48.91 Unspecified atrial fibrillation; G40.909 Epilepsy, unspecified, not intractable, without status epilepticus; I12.9 Hypertensive chronic kidney disease with stage 1 through stage 4 chronic kidney disease, or unspecified chronic kidney disease; I25.10 Atherosclerotic heart disease of native coronary artery without angina pectoris; Z95.5 Presence of coronary angioplasty implant and graft; E78.5 Hyperlipidemia, unspecified; G47.33 Obstructive sleep apnea (adult) (pediatric); Z68.36 Body mass index [BMI] 36.0-36.9, adult; Z79.4 Long term (current) use of insulin; H35.30 Unspecified macular degeneration; Z87.891 Personal history of nicotine dependence; Z79.82 Long term (current) use of aspirin; Z79.84 Long term (current) use of oral hypoglycemic drugs; E66.01 Morbid (severe) obesity due to excess calories; E87.70 Fluid overload, unspecified; N18.3 Chronic kidney disease, stage 3 (moderate); K21.9 Gastro-esophageal reflux disease without esophagitis; R19.7 Diarrhea, unspecified; Z23 Encounter for immunization
CPT/HCPCS: C1751; C1758; G0009; J0282; J0330; J0461; J0690; J0883; J1570; J1630; J1650; J1652; J1815; J1940; J1953; J1956; J2060; J2250; J2270; J2543; J2704; J2920; J2930; J3010; J3370; J7030; J7040; J7050; J7999; P9017; P9045